=== PATIENT | male | born 1970 | race Two or more races ===

== ENCOUNTER 2024-11-08 08:45 | Emergency (ER) | payer OTHER ==
[~2024-11-08] VITALS: Ht 182.9 cm; Wt 68.2 kg
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
[2024-11-08] MEDS ORDERED: NAPR-746 PO (10:51)
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
[2024-11-08 11:22] VITALS: BP 131/91; PULSE 82; RESP 18; TEMP 98.3; O2SAT 97
== END 2024-11-08 10:52 | disposition home or self-care (01) ==
LOC: ER 08:45 → EDBD 08:45 → ER 10:52
DX: S42.021A Displaced fracture of shaft of right clavicle, initial encounter for closed fracture (principal); V29.99XA Rider (driver) (passenger) of other motorcycle injured in unspecified traffic accident, initial encounter; Y93.89 Activity, other specified; Y92.89 Other specified places as the place of occurrence of the external cause; Y99.8 Other external cause status
CPT/HCPCS: 73000; 73030

== ENCOUNTER 2024-11-23 09:53 | Day surgery (SDC) | payer OTHER ==
[~2024-11-23] VITALS: Ht 182.9 cm; Wt 63.5 kg
[~2024-11-23 09:53] MED LIST: PERCOT PO
[2024-11-23] MEDS ORDERED: ROPIVACAINE 0.5% (5MG/ML) 20ML AMPULE IJ ONE (12:20)
[2024-11-23] MEDS ORDERED: ACETAMINOPHEN IV 100 ML IV ONE (12:25)
[2024-11-23] MEDS ORDERED: GABAPENTIN 100 MG CAP ONE (12:25)
[2024-11-23] MEDS ORDERED: CELECOXIB 100 MG CAP ONE (12:25)
[2024-11-23] MEDS: ACETAMINOPHEN IV 1000 MG/100ML (10MG/ML) IV ONE (12:30)
[2024-11-23] MEDS: GABAPENTIN 300 MG CAP PO ONE (12:30)
[2024-11-23] MEDS: CELECOXIB 100 MG CAP PO ONE (12:30)
[2024-11-23] MEDS ORDERED: ROCURONIUM 10MG/ML 10ML VIAL IV ONE (12:36)
[2024-11-23] MEDS ORDERED: ONDANSETRON HCL 4 MG/2 ML VIAL ONE (12:36)
[2024-11-23] MEDS ORDERED: GLYCOPYRROLATE 0.2 MG/ML 1ML VIAL ONE (12:36)
[2024-11-23] MEDS ORDERED: SUGAMMADEX 200mg/2ml Vial (100MG/ML) IV ONE (12:36)
[2024-11-23] MEDS ORDERED: KETOROLAC TROMETH 30 MG/ML 1ML VIAL ONE (12:36)
[2024-11-23] MEDS ORDERED: PROPOFOL 10 MG/ML 20 ML IV ONE (12:36)
[2024-11-23] MEDS ORDERED: LIDOCAINE 2% (LOCAL ANESTH.) PF 5ml SDV ONE (12:36)
[2024-11-23] MEDS ORDERED: ESMOLOL HCL 10 ML IV ONE (13:24)
[2024-11-23] MEDS ORDERED: fentaNYL CITRATE 100 MCG/2 ML VL ONE (13:35)
--- NOTE | 2024-11-23 14:58 | DVHOP2 ---
Operative Report - 2 Report Details Date: 11/23/24 Preop Diagnosis: Comminuted displaced right clavicle fracture Postop Diagnosis: Comminuted displaced fracture right clavicle Surgeon: Stuart Neil MD [employer] P8 Developer: Sarina JEFFERSON Anesthesiologist: Joaquim Stark CRNA Anesthesia: General, Regional Implant: Biomet clavicle plate with six screws Consent: The patient was informed of the risks and benefits of the procedure. These include but are not limited to complications of anesthesia, postoperative infection, incomplete relief of symptoms, recurrence of symptoms, damage to blood vessels, nerves and tendons, deep venous thrombosis, pulmonary embolism and possible need for repeat surgery in the future. Complications: None Estimated Blood Loss: 40 cc Fluids: See anesthesia record Findings: Comminuted displaced midshaft clavicle fracture with early healing Indications for Surgery: Unstable clavicle fracture Name of Procedure Performed Open reduction internal fixation right clavicle fracture C-arm fluoroscopy Procedure Details Procedure Details: Patient was brought to the operating room and placed on the table in the supine position. General anesthetic was given. Patient received 2 g of IV Ancef. Regional block was performed. C-arm was brought in to obtain riverine assault craft crewman views to ensure visualization. Right upper extremity was prepped and draped in sterile fashion. Surgical time-out was performed verifying patient, laterality, and procedure. Transverse incision was made over the top of the clavicle. Subcutaneous dissection and hemostasis performed with Bovie. I incised the periosteum along the top of the fracture and then used the Bovie to dissected posteriorly and anteriorly. I used a elevators at the undersurface of the clavicles to free them up. I used a curette and rongeur at the fracture sites to freshen up the bone. I carefully dissected the comminuted fragment and attempt to preserve blood supply. I reduced the fracture with tenaculum and passed a K-wire from anterior to posterior to hold the fracture in place. I then bent off one of the screw holes on the eight hole Biomet plate. I applied the plate to the top of the bone and fixed it laterally with a cortical screw and medially with a cortical screw. Screw technique involved drilling application with depth gauge and insertion of screw. C-arm was brought in to verify reduction and hardware placement. I then placed two locking screws medially and two locking screws laterally. I did use the guide to facilitate placement of the locking screws. I swapped out the medial cortical screw to get a better bite. I then reduced the comminuted fragment as well as possible and held it in place with two FiberWire sutures. C-arm was brought in to verify fracture reduction and hardware placement. I irrigated copiously normal saline bulb syringe. I then applied synthetic bone graft to the fracture site. The fascial tissue was closed with 0 Vicryl. SubQ was closed with 2-0 Vicryl. Skin was closed with 3-0 Monocryl subcuticular. We then applied a Prineo dressing. ABD was applied over the Prineo dressing to ensure the there was adequate coverage in the event of drainage. Patient tolerated the procedure well was brought to recovery room in stable condition. Condition Stable Disposition Home STUART NEIL MD Nov 23, 2024 14:58
[2024-11-23 15:04] VITALS: PULSE 85; RESP 12; TEMP 97.5; O2SAT 99
[2024-11-23] MEDS ORDERED: ONDANSETRON HCL 4 MG/2 ML VIAL IV PRN (15:15)
[2024-11-23] MEDS ORDERED: HYDROmorphone HCL 2 MG/ML VL/or syr IV PRN (15:15)
[2024-11-23] MEDS ORDERED: hydrALAZINE HCL 20 MG/ML VL IV PRN (15:15)
[2024-11-23] MEDS ORDERED: NALOXONE HCL 0.4 MG/ML VIAL IV PRN (15:15)
[2024-11-23] MEDS ORDERED: fentaNYL CITRATE 100 MCG/2 ML VL IV PRN (15:15)
[2024-11-23] MEDS ORDERED: FLUMAZENIL 0.1 MG/ML INJ 10ML MDV IV PRN (15:15)
[2024-11-23 15:49] VITALS: BP 162/101; PULSE 82; RESP 14; O2SAT 97
--- NOTE | 2024-11-23 20:52 | DVH ---
C-ARM FLUOROSCOPY: PROCEDURE: Right clavicle ORIF FLUOROSCOPY TIME: 1 Air Kerma: 1 mgy FINDINGS: Spot intraoperative C arm radiographs demonstrating right clavicle ORIF. IMPRESSION: Please refer to surgical report for detailed findings.
== END 2024-11-23 16:08 | disposition home or self-care (01) ==
LOC: SUR 09:53
PROVIDERS: ATTEND Orthopaedic Surgery
DX: S42.021A Displaced fracture of shaft of right clavicle, initial encounter for closed fracture (principal); G89.18 Other acute postprocedural pain; F17.210 Nicotine dependence, cigarettes, uncomplicated; Z79.82 Long term (current) use of aspirin; Z79.899 Other long term (current) drug therapy; Z98.890 Other specified postprocedural states; Z82.49 Family history of ischemic heart disease and other diseases of the circulatory system; X58.XXXA Exposure to other specified factors, initial encounter; Y93.89 Activity, other specified; Y92.89 Other specified places as the place of occurrence of the external cause; Y99.8 Other external cause status
CPT/HCPCS: 23515; 64999; 73000; 76000; C1713; J1100; J1885; J2003; J2405; J2704; J2795; J3010; J0131